=== PATIENT | male | born 2000 | race Caucasian/White ===

== ENCOUNTER 2023-03-05 12:13 | Emergency (ER) | payer BC, OTHER ==
[~2023-03-05] VITALS: Ht 170.2 cm; Wt 60.3 kg
[~2023-03-05 12:13] MED LIST: LORA10TA19 PO
[2023-03-05 12:15] VITALS: BP 118/79
--- NOTE | 2023-03-05 12:29 | NUR ---
pt to a chair, MONALISA portillo pt, flu and covid tests obtained, taken to lab
[2023-03-05] MEDS ORDERED: ACETAMINOPHEN 325 MG TAB PO ONE (12:40)
--- NOTE | 2023-03-05 12:43 | NUR ---
The patient's care was reviewed and supervised by ANA MARIA CELESTIN RN.
[2023-03-05] MEDS ORDERED: AMOX500C25 PO (13:13)
[2023-03-05 13:21] VITALS: BP 134/76
--- NOTE | 2023-03-05 13:23 | NUR ---
Patient discharged with v/s stable. Written and verbal after care instructions given and explained. Patient verbalized understanding. Ambulatory with steady gait. All questions addressed prior to discharge. Advised to follow up with PMD.
== END 2023-03-05 13:21 | disposition home or self-care (01) ==
LOC: MED 12:13
DX: R05.9 Cough, unspecified (principal); R09.81 Nasal congestion; J34.89 Other specified disorders of nose and nasal sinuses; Z20.822 Contact with and (suspected) exposure to COVID-19
CPT/HCPCS: 71045; 99284